=== PATIENT | male | born 1990 | race Caucasian/White ===

== ENCOUNTER 2023-02-09 02:22 | Emergency (ER) | payer OTHER ==
--- NOTE | 2023-02-09 03:13 | ED Physician Documentation ---
PD HPI LOWER EXT INJURY - Stated complaint Stated Complaint: R ANKLE INJ - Chief complaint Chief Complaint: Trauma Ext - History obtained from History obtained from: Patient - History of Present Illness PD HPI LOW EXT INJURY LOCATION: Right, Ankle Type of injury: Twist Where injury occurred: Work Timing - onset: Today Timing - duration: Hours Timing - details: Abrupt onset, Still present Improved by: Rest, Ice, Immobilization, Dressing Worsened by: Moving, Palpating Associated symptoms: Swelling. 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 He is complaining of pain and swelling to the right lateral malleolus. He is able to bear some weight on his heel . Review of Systems Constitutional: denies: Fever Respiratory: denies: Cough GI: denies: Vomiting, Diarrhea PD PAST MEDICAL HISTORY - Present Medications Home Medications: Ambulatory Orders Medication Instructions Recorded Confirmed Lisdexamfetamine Dimesylate 70 mg PO DAILY 02/09/23 02/09/23 [Vyvanse] - Allergies Allergies/Adverse Reactions: Allergies Allergy/AdvReac Type Severity Reaction Status Date / Time No Known Drug Allergies Allergy Verified 02/09/23 03:12 PD ED PE NORMAL - Vitals Vital signs reviewed: Yes - General General: Alert and oriented X 3, No acute distress, Well developed/nourished - HEENT HEENT: Atraumatic, PERRL, EOMI - Respiratory Respiratory: No respiratory distress - Derm Derm: Normal color, Warm and dry, No rash - Extremities Extremities: Other (Swelling and point tenderness over the lateral malleolus the proximal fibula is nontender. There is tenderness over the talofibular ligament and reduced range of motion secondary to pain. 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 He has stepped out of the helicopter and twisted his ankle. Imaging is without evidence of fracture the patient is placed into an ankle Aircast and given instructions on the natural history of ankle sprain. Departure - Departure Disposition: 01 Home, Self Care Clinical Impression: Right ankle sprain Qualifiers: Encounter type: initial encounter Involved ligament of ankle: anterior talofibular ligament Qualified Code(s): S93.491A - Sprain of other ligament of right ankle, initial encounter Condition: Stable Instructions: ED Sprain Ankle W X Ray Comments: Zachariah, today looks like you have sprained your right ankle and there is no evidence of a fracture. Your body should let you begin to bear weight in 2 to 3 days and you may have some pain in this, walking on uneven uneven ground, for the rest of the year. Complete recovery is expected. Forms: PCP List Discharge Date/Time: 02/09/23 03:25
[2023-02-09 03:16] VITALS: O2SAT 99
[2023-02-09 04:00] VITALS: BP 153/92
--- NOTE | 2023-02-09 08:08 | XRAY Report ---
PROCEDURE: Ankle 3 View RT INDICATIONS: R julia injury/pain TECHNIQUE: 3 views of the ankle were acquired. COMPARISON: None. FINDINGS: Bones: No fractures or dislocations. Ankle mortise is normally aligned. No suspicious bony lesions . Soft tissues: No tibiotalar joint effusion. Achilles tendon appears normal. IMPRESSION: No acute bony abnormality. Findings are concordant with preliminary interpretation provided by [facility]. Reviewed by: Nicolas Velasco MD on 02/09/2023 8:07 AM PDT Approved by: Nicolas Velasco MD on 02/09/2023 8:07 AM PDT Station ID: [id number]
== END 2023-02-09 03:25 | disposition home or self-care (01) ==
LOC: ED 02:22
DX: S93.491A Sprain of other ligament of right ankle, initial encounter (principal); X50.1XXA Overexertion from prolonged static or awkward postures, initial encounter; Y93.89 Activity, other specified; Y92.813 Airplane as the place of occurrence of the external cause; Y99.0 Civilian activity done for income or pay
CPT/HCPCS: 1040M; 73610; 99282; 99283